=== PATIENT | male | born 1965 | race Caucasian/White ===

== ENCOUNTER 2020-12-22 07:12 | Emergency (ER) | payer SELFPAY ==
[2020-12-22 07:14] VITALS: BP 151/115; PULSE 92; RESP 18; TEMP 36.2; O2SAT 97; BMI 33.4
--- NOTE | 2020-12-22 07:26 | ED_ITS ---
HPI - Skin/Abscess/Foreign Bdy General: Chief complaint: Skin/Abscess/Foreign Body Stated complaint: bumps all over body Time Seen by Provider: 12/22/20 07:16 History of Present Illness: HPI narrative: This 55-year-old male has complaints of some skin lesions he has noticed for about 3 weeks they tend to be more itchy but occasionally are painful. He has noticed a few blisterlike areas on his right posterior upper arm his left lower leg a little areas around his right groin he also has 2 areas on his left arm. Denies any fevers chills or recent tick bites he denies any chest pain shortness of breath or fevers. He does admit that he used a needle to inject some drugs several weeks ago but denies any complaints around the left arm injection site. Review of Systems Narrative: General: denies fatigue, fever or chills HEENT: denies ear pain, denies nasal congestion, denies vision changes, denies sore throat Neck: denies masses or pain Resp: denies cough, denies shortness of breath, denies pleuritic pain Cardio: denies chest pain, denies edema GI: denies abdominal pain, denies N/V/D, denies black/tarry or bloody stools : denies hematuria, denies dysuria Neuro: denies headache, denies dizziness, denies motor or sensory changes Musculoskeletal: denies pain, denies swelling Skin: see HPI Psych: denies SI or HI Endocrine: denies thyroid symptoms, denies lymphadenopathy all over ROS reviewed and patient denies Physical Exam Narrative: EXAM NARRATIVE: General: no distress, HEENT: normal eyes, normal mouth, normal external nose Neck: FROM Resp: normal effort, no tachypnea, no stridor Cardio: normal rate, no edema, no murmur GI: soft, flat, non distended : deferred Neuro: normal coordination, normal speech, no gross motor or sensory deficits Musculo: normal ROM, no gross deformities Skin: clusters of erythema with some vesicle in various areas on right posterior forearm, left tricep area and posterior forearm, 1 area left posterior thigh, right groin with mild erythema and no true vesicles. no flank area, no facial scalp or neck areas. no abscess, maculopapular with increased erythema and few areas with clear center, no streaking Psych: normal behavior normal mood and effect Course Vital Signs: Vital signs: Vital Signs Temperature 97.2 F L 12/22/20 07:14 Pulse Rate 92 12/22/20 07:14 Respiratory Rate 18 12/22/20 07:14 Blood Pressure 151/115 12/22/20 07:14 Pulse Oximetry 97 12/22/20 07:14 MDM - Skin/Abscess/Foreign Bdy MDM Narrative: Medical decision making narrative: Patient's blood pressure is slightly elevated he says he feels like he is just nervous. He was concerned that he had shingles and/or MRSA. All the lesions themselves are little bit vesicular they are in scattered areas on his body with his bilateral forearms his right groin as well as an area on his leg. He does not have any blatant cellulitis. Discussed with him we could try him on some antibiotics as he seems quite concerned about MRSA and with his recent drug use I think this would be reasonable we can try a little triamcinolone cream on isolated areas for itching and see if this improves otherwise he is good have to follow-up with dermatology or his primary care and see if he needs some type of a scraping or further work- up patient like to do Bactrim discussed with him risks of reactions Differential Diagnosis: Skin/Abscess Differential Diagnosis: Likely viral exanthem, herpes zoster, cellulitis, eczema, insect bites and contact dermatitis Medical Records: Attestation: I reviewed the patient's medical records. Discharge Plan Discharge Patient Disposition: Home Clinical Impression: Skin lesion of left upper extremity Condition: Stable Prescriptions: New sulfamethoxazole-trimethoprim [Bactrim DS] 800-160 mg tablet 1 tab PO BID 7 Days Qty: 14 RF: 0 triamcinolone acetonide 0.1 % cream 1 applic topical TID Qty: 15 RF: 0 Discharge Orders: Discharge ED (Routine); Ordered 12/22/20 Ordered By: Eleanor Butt Patient Instructions: Cellulitis, Methicillin Resistant Staphylococcus Aureus (ED), Herpes Zoster (ED) Activity Restrictions/Additional Instructions: Try the antibiotics twice a day for a week if you notice any fine rash then stop antibiotics and start Benadryl Use the steroid cream just on areas that seem to be causing itching use it sparingly you do not need a lot of it. Return if signs of streaking chest pain shortness of breath follow-up with your primary care provider your blood pressure was quite elevated today keep an eye on it and keep track of readings at [facility] or [facility] Thank you for choosing [facility] for your healthcare needs today. Please realize this is an emergency room and that we are providing you with a medical screening exam and this may not be complete and all inclusive of all the testing and or work up that you may need to determine your ailment or severity of your illness. It is very important that you follow up as instructed or that you return to the Emergency Department should you have concerns or if your condition changes or worsens in any way. Coding Level of Care Code ED Supercalender Operator Helper for Shamir Wood
== END 2020-12-22 07:43 | disposition home or self-care (01) ==
PROVIDERS: Emergency Provider Emergency Medicine
DX: L98.9 Disorder of the skin and subcutaneous tissue, unspecified (principal)
CPT/HCPCS: 99282

== ENCOUNTER 2020-12-27 11:37 | Emergency (ER) | payer SELFPAY ==
[2020-12-27 12:00] VITALS: BP 156/89; PULSE 104; RESP 18; TEMP 36.9; O2SAT 98; BMI 33.4
[2020-12-27 12:14] VITALS: BP 156/89; PULSE 100; RESP 16; O2SAT 97
--- NOTE | 2020-12-27 12:16 | ED_ITS ---
HPI - Skin/Abscess/Foreign Bdy General: Chief complaint: Skin/Abscess/Foreign Body Stated complaint: LUMPS ON L ARM Time Seen by Provider: 12/27/20 12:05 History of Present Illness: HPI narrative: Patient presents follow-up for lumps that occur on his arms. Says they itch at times. He is unsure whether he had MRSA in the past but he now has had staph infection. He denies any drainage fever chills MD complaint: rash Onset (ago): week(s) Tetanus up to date: yes [place] [facility] [place] [facility] Severity: mild Severity scale (1-10): 1 Associated symptoms: Deny chills, fever(s), nausea or vomiting Review of Systems Const: Denies: fever(s), chills or body aches Eyes: Denies: change in vision or blurry vision ENMT: Denies: throat pain or nasal congestion Card: Denies: chest pain or dyspnea on exertion Resp: Denies: dyspnea, productive cough or non-productive cough GI: Denies: abdominal pain, nausea or vomiting : Denies: difficulty urinating Musc: Denies: extremity pain Skin/Breast: Reports: rash (Said these lesions just pop up in his arm and the edge. He has used all me), pruritus, skin tenderness and other (Denies current drug use); Denies: erythema or skin swelling Neuro: Denies: headache(s) Psych: Denies: anxiety or depression Brandon/Lymph: Denies: easy bruising Physical Exam Const: COMMON NORMALS: no acute distress, average body habitus and patient oriented x3 HENMT: COMMON NORMALS: normocephalic HEAD & SCALP: normal to inspection and normocephalic FACE & SINUS: normal facial exam Eye: COMMON NORMALS: conjunctivae normal GENERAL EYE: appearance normal, both eyes and all related structures CONJUNCTIVA: Yes conjunctivae normal Neck/C-Spine: COMMON NORMALS: no JVD Chest: COMMONS NORMALS: normal inspection of the chest Resp: COMMON NORMALS: normal respiratory effort and clear to auscultation bilaterally AUSCULTATION: clear to auscultation bilaterally Cardio: COMMON NORMALS: no JVD, regular rate and regular rhythm RATE: regular rate RHYTHM: regular rhythm GI: COMMON NORMALS: Normal to inspection, nondistended, normoactive bowel sounds present Extremity: COMMON NORMALS: normal to inspection and full ROM Neuro: COMMON NORMALS: patient oriented x3 Skin: NARRATIVE SKIN EXAM: Patient has urticarial type areas on both arms. W orse on the left than the right. Some mechanical debridement has happened. Does have some scabbed areas left elbow and left lower forearm 1-2 right forearm. No areas of cellulitis no erythema. Course Vital Signs: Vital signs: Vital Signs Temperature 98.4 F 12/27/20 12:00 Pulse Rate 104 H 12/27/20 12:00 Respiratory Rate 18 12/27/20 12:00 Blood Pressure 156/89 12/27/20 12:00 Pulse Oximetry 98 12/27/20 12:00 Discharge Plan Discharge Patient Disposition: Home Clinical Impression: Urticaria Condition: Stable Prescriptions: No Action Bactrim DS 800-160 mg tablet 1 tab PO BID 7 Days Qty: 14 RF: 0 triamcinolone acetonide 0.1 % cream 1 applic topical TID Qty: 15 RF: 0 Discharge Orders: Discharge ED (Routine); Ordered 12/27/20 Ordered By: Wolf Wilson Discharge Diet: Usual diet Discharge Activity: Resume usual activity Activity Restrictions/Additional Instructions: Make sure you make an appointment with mobile home park manager. Continue using ov [id number] products as needed for skin outbreaks. Follow-up your primary care provider if no significant improvement. Can use Benadryl to help with hives and allergic reactions. Can use [id number] soaps are surgical preparations to help with possibility of colonizing with MRSA. Coding Level of Care Code ED Accounting Analyst for Shamir Wood
== END 2020-12-27 12:19 | disposition home or self-care (01) ==
PROVIDERS: Emergency Provider Nurse Practitioner Family
DX: L50.9 Urticaria, unspecified (principal)
CPT/HCPCS: 99282

== ENCOUNTER 2022-03-19 10:17 | Emergency (ER) | payer SELFPAY ==
[2022-03-19 10:28] VITALS: BP 156/92; PULSE 86; RESP 16; TEMP 36.9; O2SAT 98; BMI 33.4
--- NOTE | 2022-03-19 10:41 | ED_ITS ---
HPI - Eye Problem General: Chief complaint: Eye Problems Stated complaint: left eye is red Time Seen by Provider: 03/19/22 10:33 Source: patient Mode of arrival: ambulatory Limitations: no limitations History of Present Illness: Patient is a 56-year-old male who presents to ED today with a complaint of left eye discomfort. He states over the past couple of days he has noticed some discomfort to his left eye, increased tearing, redness, and some photophobia. Patient is a contact lens wearer and admittedly does not always remove his contacts at night. No foreign body sensation. No visual changes. No purulent discharge. chief complaint: eye pain and eye redness Onset (ago): day(s) Onset description: gradual Duration: constant Location: left eye Eye Symptoms: redness and photophobia Place: home Mechanism: none Severity: mild Context: contact lens use Associated symptoms: Reports no associated symptoms; Denies fever(s), headache(s) or neck pain Related Data: Patient tetanus UTD: Yes Review of Systems Const: Denies: fever(s), chills, body aches, fatigue or malaise Eyes: Reports: photophobia, eye redness and increased production of tears; Denies: change in vision, blurry vision, blind spots, yellow eyes, dry eyes, floaters or seeing flashes ENMT: Denies: throat pain, odynophagia, ear or mastoid pain, nasal discharge, nasal congestion, post nasal drip or sinus pain Musc: Denies: neck pain Skin/Breast: Denies: rash Neuro: Denies: headache(s) Physical Exam Const: COMMON NORMALS: no acute distress, patient oriented x3, no limitations and alert GENERAL APPEARANCE: cooperative ORIENTATION/CONSCIOUSNESS: Yes awake, Yes oriented to person, Yes oriented to place and Yes oriented to time Eye: COMMON NORMALS: Equal, round and reactive pupils present and EOMs intact bilaterally GENERAL EYE: normal light reflex VISUAL ACUITY: Yes acuity normal VISUAL LISA: No peripheral vision loss and No central vision loss PERIORBITAL: periorbital findings normal EYELID: eyelids normal CONJUNCTIVA: Yes conjunctival abnormal positive left SCLERA: sclerae normal CORNEA: Yes corneas normal PUPIL: Yes Equal, round and reactive pupils present DIRECT OPHTHALMOSCOPY: Yes normal light reflex Neuro: COMMON NORMALS: patient oriented x3 SENSORIUM/ORIENTATION: Yes alert, Yes oriented to person, Yes oriented to place and Yes oriented to time Course Vital Signs: Vital signs: Vital Signs Temperature 98.4 F 03/19/22 10:28 Pulse Rate 86 03/19/22 10:28 Respiratory Rate 16 03/19/22 10:28 Blood Pressure 156/92 03/19/22 10:28 Pulse Oximetry 98 03/19/22 10:28 MDM - Eye Problem Medical Decision Making Patient with normal fluorescein stain eye exam. At this time we will treat him for left eye conjunctivitis. Recommend ophthalmology follow-up in 2 to 3 days if eye does not seem to be improving. Discharge Plan Discharge Patient Disposition: Home Clinical Impression: Conjunctivitis of left eye Condition: Stable Prescriptions: New Polytrim 10,000 unit- 1 mg/mL drops 1 drp ophthalmic (eye) QID 7 Days Qty: 10 0RF No Action triamcinolone acetonide 0.1 % cream 1 applic topical TID Qty: 15 0RF Discharge Orders: Discharge ED (Routine); Ordered 03/19/22 Ordered By: Yesenia Werner Patient Instructions: Conjunctivitis (ED) Activity Restrictions/Additional Instructions: Please begin antibiotic drops immediately. I would like you to follow-up with ophthalmology in 2 to 3 days if eye does not seem to be improving. We will go ahead and place this referral with case management to should reach out to you shortly regarding this appointment. Stand Alone Forms: Work/School Release Coding Level of Care Code ED Medical Record Transcriber for Shamir Fwd Exam Expanded Problem Focused
[2022-03-19] MEDS: eye irrigation 30 mL Btl EYE-LEFT (11:00)
[2022-03-19] MEDS: tetracaine 0.5% Op Soln 4 mL Btl 1 DROP EYE-LEFT (11:00)
[2022-03-19] MEDS: fluorescein 1 mg Strip EYE-LEFT (11:00)
--- NOTE | 2022-03-20 07:47 | DCPLANNER ---
Addendum entered by Sophie Lott 03/22/22 07:10: Dr. Vasquez office called clinical case manager stating that they were unable to contact patient due to wrong phone number in chart. education and training manager did not have another number for patient. Clinic will hold onto the referral and wait to see if patient calls clinic for appointment. Original Note: education and training manager had message to refer patient to the office of Dr. Vasquez. education and training manager sent patients information to the office of Dr. Vasquez for review. Patients information will be reviewed, clinic will call patient with appointment information.
== END 2022-03-19 12:19 | disposition home or self-care (01) ==
PROVIDERS: Emergency Provider Physician Assistant
DX: H10.9 Unspecified conjunctivitis (principal)
CPT/HCPCS: 99283